=== PATIENT | male | born 1995 | race Two or more races ===

== ENCOUNTER 2019-11-11 13:14 | Emergency (ER) | payer OTHER ==
[~2019-11-11] VITALS: Ht 180.3 cm; Wt 97.5 kg
[2019-11-11 13:20] VITALS: BP 148/84
[2019-11-11] MEDS ORDERED: Methocarbamol 750mg tab ORAL ONE (13:45)
[2019-11-11] MEDS ORDERED: Ketorolac 30mg Inj IM ONE (13:45)
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
[2019-11-11] MEDS ORDERED: LIDODERM700 M1 TOPIC (15:39)
[2019-11-11] MEDS ORDERED: IBU800 MG PO (15:39)
[2019-11-11] MEDS ORDERED: ROBAXIN-500MG ORAL (15:39)
[2019-11-11 15:45] VITALS: BP 141/79
== END 2019-11-11 15:45 | disposition home or self-care (01) ==
LOC: EMR 13:30
DX: S16.1XXA Strain of muscle, fascia and tendon at neck level, initial encounter (principal); V43.62XA Car passenger injured in collision with other type car in traffic accident, initial encounter; Y92.410 Unspecified street and highway as the place of occurrence of the external cause
CPT/HCPCS: 72125; 96372; 99284; J1885